=== PATIENT | female | born 1975 | race Caucasian/White ===

== ENCOUNTER 2020-11-26 16:29 | Emergency (ER) | payer OTHER ==
[~2020-11-26] VITALS: Ht 162.6 cm; Wt 70.3 kg
[~2020-11-26 16:29] MED LIST: AFRIN SALINE NA30 ML NS; AMOXICILLIN875 MG PO; APAP500; BACTRIM DS TAB1 EACH PO; CARISOPRODOL 3350 MG PO; CENTRUM SILVER1 EAC4 PO; CEPHALEXIN 500500 M3 PO; CIPROFLOXIN HC2.5 M1 OTIC; CYCLOBENZAPRINE; DENIES ANY MEDS; DESYREL50 MG PO; DOXYCYCLINE 10100 MG PO; FIBER625 MG PO; FLEXERIL PO; FLOXIN OTI0.3 %/5 M1 OT; HYDROCODON-ACE1 EAC7 PO; HYDROCODONE-AP1 EAC6 PO; LEVALBUTER1.25 MG/0. INH; MEDROLDOSEPACK PO; NEURONTIN 300300 M1 PO; NOHOMEMEDICATIONS; NORCO 5-325 TA1 EACH PO; OMEPRAZOLE; OMEPRAZOLE20 M2; ONDANSETRON HCL4 M2 PO; PERCOCET 5-3251 EACH PO; PERCOCET PO; PHENERGAN 25 MG25 M1 PO; PREDNISONE 20 M20 M1 PO; PREDNISONE 20 M20 MG PO; PREDNISONE50 MG PO; PREVACID15 MG PO; PRILOSEC 10MG C10 M1 PO; PRILOSEC 20 MG20 MG PO; PRILOSEC20 MG PO; PRILOSEC40 MG; PRILOSEC40 MG PO; ROBAXIN500 MG; ROBAXIN500 MG PO; TRAMADOL 50 MG50 MG PO; TRIAMCINOLONE A80 G2 TOP; ULTRAM 50MG TAB50 MG PO; ULTRAM50 MG PO; XOPENEX HF1 UDINHALE; XOPENEX HF1 UDINHALE IH; ZANTAC 150MG T150 MG
[2020-11-26 16:35] VITALS: BP 120/72
[2020-11-26] MEDS ORDERED: DESYREL150 MG PO (16:40)
[2020-11-26] MEDS ORDERED: PREDNISONE 20 M20 MG PO (17:24)
[2020-11-26] MEDS ORDERED: NORCO5 PO (17:24)
== END 2020-11-26 17:39 | disposition home or self-care (01) ==
LOC: ER 16:29
DX: M25.562 Pain in left knee (principal); J45.909 Unspecified asthma, uncomplicated; K21.9 Gastro-esophageal reflux disease without esophagitis; G89.29 Other chronic pain; Z87.442 Personal history of urinary calculi; Z88.6 Allergy status to analgesic agent; Z88.5 Allergy status to narcotic agent; Z90.710 Acquired absence of both cervix and uterus; Z98.890 Other specified postprocedural states